=== PATIENT | female | born 1985 | race Caucasian/White ===

== ENCOUNTER 2019-08-14 08:54 | Emergency (ER) | payer MEDICAID ==
[~2019-08-14] VITALS: Ht 162.6 cm; Wt 76.4 kg
[~2019-08-14 08:54] MED LIST: CEPH-443 PO
[2019-08-14 08:58] VITALS: BP 138/65; PULSE 80; RESP 17; Ht 162.6 cm; Wt 76.4 kg
== END 2019-08-14 11:20 | disposition home or self-care (01) ==
LOC: FTE 08:54
DX: O20.0 Threatened abortion (principal); Z3A.08 8 weeks gestation of pregnancy
CPT/HCPCS: 36415; 76801; 76817; 81001; 84702; 85025; 86900; 86901; Z7502